=== PATIENT | female | born 1970 | race Caucasian/White ===

== ENCOUNTER → 2017-04-22 | Outpatient (CLI) | payer OTHER | LOC: FIMAGING 17:01 | DX: M79.671 Pain in right foot (principal); M79.89 Other specified soft tissue disorders ==

== ENCOUNTER → 2018-08-19 | Outpatient (CLI) | payer OTHER | LOC: CIMAGING 10:49 | PROVIDERS: ATTEND Family Medicine | DX: Z12.31 Encounter for screening mammogram for malignant neoplasm of breast (principal); Z80.3 Family history of malignant neoplasm of breast ==